=== PATIENT | female | born 1955 | race Caucasian/White ===

== ENCOUNTER 2017-01-16 17:43 | Emergency (ER) | payer OTHER ==
[~2017-01-16] VITALS: Ht 160 cm; Wt 75.0 kg
[2017-01-16 17:48] VITALS: BP 150/104; PULSE 65; RESP 17; TEMP 98.2; O2SAT 99
[2017-01-16] MEDS ORDERED: METO-338 PO (19:48)
[2017-01-16] MEDS ORDERED: ZOLP1SPR PO (19:48)
[2017-01-16] MEDS ORDERED: ATOR20TA15 PO (19:48)
[2017-01-16] MEDS ORDERED: METF-758 PO (19:48)
[2017-01-16] MEDS ORDERED: METO25TA6 PO (19:48)
[2017-01-16] MEDS ORDERED: [UNRECOGNIZED DRUG - OTHER] PO (19:48)
[2017-01-16] MEDS ORDERED: TRAM50TA PO (19:48)
--- NOTE | 2017-01-16 19:50 | PD ---
HPI Chief Complaint: Psychiatric Symptoms Time Seen by Provider: 19:21 Travel History International Travel<30 days: No Contact w/Intl Traveler<30days: No Traveled to known affect area: No History of Present Illness HPI Patient speaks [place]ian and [place] she is, however prefers to communicate in Czech. This is a 61-year-old female with history of depression on duloxetine and seroquel here for evaluation of worsening depression, episodes of crying, and episodes of anger. She states that she moved to [place] 2 months ago and has not been able to find a psychiatrist. She has been taking her medications, but states that they are not helping her. She denies suicidal or homicidal ideation. No physical complaints. PFSH Past Medical History Diabetes: Yes Patient Takes Glucophage: No Social History Alcohol Use: No Tobacco Use: No Substance Use: No Allergies-Medications (Allergen,Severity, Reaction): Coded Allergies: No Known Allergies (Unverified , 01/16/17) Review of Systems Except as stated in HPI: all other systems reviewed are Neg Physical Exam Narrative GENERAL: Well-developed, well-nourished, comfortable, no apparent distress. SKIN: Focused skin assessment warm/dry. HEAD: Atraumatic. Normocephalic. EYES: Pupils equal and round. No scleral icterus. No injection or drainage. ENT: Mucous membranes pink and moist. NEUROLOGICAL: Awake and alert. No obvious cranial nerve deficits. Motor grossly within normal limits. Normal speech. PSYCHIATRIC: Appropriate mood and affect; insight and judgment normal. Data Data Last Documented VS Vital Signs Date Time Temp Pulse Resp B/P Pulse Ox O2 Delivery O2 Flow Rate FiO2 01/16/17 17:48 98.2 65 17 150/104 99 Orders Complete Blood Count With Diff (01/16/17 18:50) Comprehensive Metabolic Panel (01/16/17 18:50) Urinalysis - C+S If Indicated (01/16/17 18:50) Psych Screen (01/16/17 18:50) Drug Screen, Random Urine (01/16/17 18:50) Alcohol (Ethanol) (01/16/17 18:50) MDM Medical Decision Making Medical Screen Exam Complete: Yes Emergency Medical Condition: Yes Differential Diagnosis Depression Narrative Course This is a 61-year-old female with history of depression on duloxetine and seroquel here for evaluation because she reports that her medications are not working. She reports increased sadness, crying episodes, and episodes of anger. She is not suicidal or homicidal. She is asking for a referral to a psychiatrist. At this point she does not meet Mccord act criteria. She is here with her . She is stable for discharge home with outpatient follow-up. She was informed on when to return to the emergency department. Diagnosis Primary Impression: Depression Qualified Code: F32.9 - Depression, unspecified depression type Referrals: Papo Paz MD 2 days Additional Instructions: Follow-up with psychiatrist Dr. Paz or a psychiatrist of your choice this week. Return to the emergency department for worsening symptoms or any other concerns. Disposition: 01 DISCHARGE HOME Condition: Stable Krish Cedillo MD Jan 16, 2017 19:50
== END 2017-01-16 20:03 | disposition home or self-care (01) ==
LOC: NEPD 17:43
DX: F32.9 Major depressive disorder, single episode, unspecified (principal); E11.9 Type 2 diabetes mellitus without complications
CPT/HCPCS: 99283